=== PATIENT | female | born 1995 | race Caucasian/White ===

== ENCOUNTER 2016-12-25 10:46 | Emergency (ER) | payer OTHER ==
[2016-12-25 11:05] VITALS: RESP 20
--- NOTE | 2016-12-25 12:22 | ED ---
Female Urogenital HPI - General Chief complaint: Urogenital Stated complaint: POSS UTI Time Seen by Provider: 12/25/16 12:05 Source: patient, RN notes reviewed, old records reviewed Mode of arrival: ambulatory Limitations: no limitations - History of Present Illness Initial comments: This is a 21-year-old female presents emergency Department chief complaint of concern for sexually transmitted or urinary tract infection. Patient states that she's had burning with urination for the past week and half. Patient reports she is about to start her menstrual cycle. Patient states that she has noticed some discharge. Patient reports that she's had some minor abdominal pain but is thinking that is more related to her cramping and she's also started her menstrual cycle next week. Patient states that she wants to have a full workup for sexually transmitted infection. Patient denies any fever or chills. Last Menstrual Period: 12/25/16 - Related Data Home Medications Medication Instructions Recorded Confirmed Norethindrone-E.estradiol-Iron 1 tab PO DAILY@1500 12/25/16 12/25/16 [Loestrin Fe 1.5-30 Tablet] Previous Rx's Medication Instructions Recorded Fluconazole [Diflucan] 150 mg PO ONCE #3 tab 12/25/16 Nitrofurantoin Monohyd/M-Cryst 100 mg PO Q12HR #14 cap 12/25/16 [Macrobid] Allergies Allergy/AdvReac Type Severity Reaction Status Date / Time No Known Allergies Allergy Verified 12/25/16 12:33 Review of Systems ROS Statement: Those systems with pertinent positive or pertinent negative responses have been documented in the HPI. ROS Other: All systems not noted in ROS Statement are negative. Past Medical History Past Medical History: No Reported History History of Any Multi-Drug Resistant Organisms: None Reported Past Surgical History: No Surgical Hx Reported Past Psychological History: Anxiety, Depression Smoking Status: Never smoker Past Alcohol Use History: None Reported Past Drug Use History: None Reported General Exam - General Exam Comments Initial Comments: This is a pleasant 21-year-old female. Patient is on appear to be in any acute distress. Limitations: no limitations General appearance: alert, in no apparent distress Head exam: Present: atraumatic, normocephalic, normal inspection Eye exam: Present: normal appearance, PERRL, EOMI. Absent: scleral icterus, conjunctival injection, periorbital swelling ENT exam: Present: normal exam, mucous membranes moist Neck exam: Present: normal inspection. Absent: tenderness, meningismus, lymphadenopathy Respiratory exam: Present: normal lung sounds bilaterally. Absent: respiratory distress, wheezes, rales, rhonchi, stridor Cardiovascular Exam: Present: regular rate, normal rhythm, normal heart sounds. Absent: systolic murmur, diastolic murmur, rubs, gallop, clicks GI/Abdominal exam: Present: soft, normal bowel sounds. Absent: distended, tenderness, guarding, rebound, rigid External exam: Present: normal external exam Speculum exam: Present: normal speculum exam. Absent: erythema, cervical discharge, vaginal bleeding, foreign body By manual exam: Present: normal by manual exam. Absent: cervical motion tenderness, adnexal tenderness Extremities exam: Present: normal inspection, full ROM, normal capillary refill. Absent: tenderness, pedal edema, joint swelling, calf tenderness Back exam: Present: normal inspection Neurological exam: Present: alert, oriented X3, CN II-XII intact Psychiatric exam: Present: normal affect, normal mood Skin exam: Present: warm, dry, intact, normal color. Absent: rash Course Vital Signs 12/25/16 11:02 Temperature 99.1 F Pulse Rate 79 Respiratory 20 Rate Blood Pressure 126/57 O2 Sat by Pulse 98 Oximetry Medical Decision Making - Medical Decision Making This is a 21-year-old female presents emergency Department chief complaint of concern for sexually transmitted or urinary tract infection. Patient states that she's had burning with urination for the past week and half. Patient reports she is about to start her menstrual cycle. Patient states that she has noticed some discharge. Patient reports that she's had some minor abdominal pain but is thinking that is more related to her cramping and she's also started her menstrual cycle next week. Patient states that she wants to have a full workup for sexually transmitted infection. Patient's lab work was reviewed , very minimal signs for urinary tract infection. Patient will be cultured. Given patient's physical symptoms of dysuria, and lack of vaginal discharge. We 'll treat for urinary tract infection with Macrobid. I will prescribe the patient for Diflucan as well. Patient understands treatment plan will comply. Return parameters were discussed. Discussed close follow-up with superintendent greens. - Lab Data Lab Results 12/25/16 Range/Units 12:10 Urine Color Yellow Urine Appearance Clear (Clear) Urine pH 6.5 (5.0-8.0) Ur Specific [place] 1.018 (1.001-1.035) Urine Protein Trace H (Negative) Urine Glucose (UA) Negative (Negative) Urine Ketones 1+ H (Negative) Urine Blood Negative (Negative) Urine Nitrite Negative (Negative) Urine Bilirubin Negative (Negative) Urine Urobilinogen 8.0 (<2.0) mg/dL Ur Leukocyte Esterase Trace H (Negative) Urine RBC 3 (0-5) /hpf Urine WBC 8 H (0-5) /hpf Ur Squamous Epith Cells <1 (0-4) /hpf Urine Mucus Rare H (None) /hpf Disposition Clinical Impression: Dysuria Disposition: HOME SELF-CARE Condition: Good Instructions: Urinary Tract Infection in Women (ED) Additional Instructions: Follow-up with her primary care provider. Return to the emergency department if any alarming signs or symptoms occur. Patient advised to complete red prescription. Follow-up with her superintendent greens. Prescriptions: Fluconazole [Diflucan] 150 mg PO ONCE #3 tab Nitrofurantoin Monohyd/M-Cryst [Macrobid] 100 mg PO Q12HR #14 cap Referrals: Haley Rolle MD [Primary Care Provider] - 1-2 days Time of Disposition: 13:31
[2016-12-25 12:29] LABS: Appearance,Urine Clear (Clear); Bilirubin,Urine Negative (Negative); Glucose,Urine (UA) Negative (Negative); Ketones,Urine 1+ (Negative); Leukocyte Esterase,Urine Trace (Negative); Mucus,Urine Rare /hpf; Nitrite,Urine Negative (Negative); PH, Urine 6.5 (5.0-8.0); Particle Count 2320; Protein,Urine Trace (Negative); RBC,Urine 3 /hpf (0-5); Specific Gravity,Urine 1.018 (1.001-1.035); Squamous Epithelial Cell,Urine <1 /hpf (0-4); UA Billing (MACRO vs. MICRO) MICRO; WBC,Urine 8 /hpf (0-5)
[2016-12-25 14:09] VITALS: BP 106/59; PULSE 77; TEMP 98
== END 2016-12-25 14:09 | disposition home or self-care (01) ==
LOC: EC 10:46
DX: R30.0 Dysuria (principal); N89.8 Other specified noninflammatory disorders of vagina; R10.9 Unspecified abdominal pain; Z79.3 Long term (current) use of hormonal contraceptives
CPT/HCPCS: 81001; 81025; 87070; 87086; 87205; 87491; 87591; 87808; 99283

== ENCOUNTER 2019-05-20 11:14 | Emergency (ER) | payer OTHER ==
[2019-05-20 11:32] VITALS: RESP 18
[2019-05-20] MEDS ORDERED: AZITHROMYCIN 250 MG TAB PO STA (11:47)
[2019-05-20] MEDS ORDERED: cefTRIAXone 250 MG VIAL IM STA (11:47)
--- NOTE | 2019-05-20 12:18 | ED ---
Female Urogenital HPI - General Chief complaint: Urogenital Stated complaint: Female Time Seen by Provider: 05/20/19 11:30 Source: patient Mode of arrival: ambulatory - History of Present Illness Initial comments: The patient is a 24-year-old female who presents to the emergency department with reported vaginal burning for the past 4 days. She admits to clumpy white vaginal discharge with a history of similar in the past. She believes that she had a yeast infection. She has been using Monistat which she bought [id number] for her symptoms however it hasn't been helping. She denies any vaginal bleeding. Does admit to unprotected intercourse. There is a concern for possible sexually transmitted infection. Last menstrual cycle was the middle of last month. Denies dysuria, hematuria or difficult he voiding. Denies diarrhea, constipation, melanotic stools or hematochezia. Does admit to left sided and suprapubic abdominal pain. Reports a history of ovarian cysts. Denies any fevers or chills. No nausea or vomiting. No chest pain or shortness of breath. Denies any back pain or flank pain. There are no other alleviating, precipitating or modifying factors - Related Data Home Medications Medication Instructions Recorded Confirmed Norethindrone-E.estradiol-Iron 1 tab PO DAILY@1500 12/25/16 12/25/16 [Loestrin Fe 1.5-30 Tablet] Previous Rx's Medication Instructions Recorded Fluconazole [Diflucan] 150 mg PO ONCE #3 tab 12/25/16 Nitrofurantoin Monohyd/M-Cryst 100 mg PO Q12HR #14 cap 12/25/16 [Macrobid] Fluconazole [Diflucan] 150 mg PO ONCE #1 tab 05/20/19 Allergies Allergy/AdvReac Type Severity Reaction Status Date / Time No Known Allergies Allergy Verified 12/25/16 12:33 Review of Systems ROS Statement: Those systems with pertinent positive or pertinent negative responses have been documented in the HPI. ROS Other: All systems not noted in ROS Statement are negative. Past Medical History Past Medical History: No Reported History Additional Past Medical History / Comment(s): ovarian cysts History of Any Multi-Drug Resistant Organisms: None Reported Past Surgical History: No Surgical Hx Reported Past Psychological History: Anxiety, Depression Smoking Status: Never smoker Past Alcohol Use History: None Reported Past Drug Use History: None Reported General Exam General appearance: alert, in no apparent distress Head exam: Present: atraumatic, normocephalic, normal inspection Eye exam: Present: normal appearance, PERRL, EOMI. Absent: scleral icterus, conjunctival injection, periorbital swelling ENT exam: Present: normal exam, mucous membranes moist Neck exam: Present: normal inspection. Absent: tenderness, meningismus, lymphadenopathy Respiratory exam: Present: normal lung sounds bilaterally. Absent: respiratory distress, wheezes, rales, rhonchi, stridor Cardiovascular Exam: Present: regular rate, normal rhythm, normal heart sounds. Absent: systolic murmur, diastolic murmur, rubs, gallop, clicks GI/Abdominal exam: Present: soft, normal bowel sounds. Absent: distended, tenderness, guarding, rebound, rigid External exam: Present: erythema (of the labia majora), swelling (of the labia majora). Absent: lesions, lacerations, ecchymosis Speculum exam: Present: erythema, vaginal discharge (white, clumpy), cervical discharge. Absent: vaginal bleeding, foreign body, tissue, laceration By manual exam: Absent: cervical motion tenderness, adnexal tenderness, adnexal mass, uterine enlargement, uterine tenderness Extremities exam: Present: normal inspection, full ROM, normal capillary refill. Absent: tenderness, pedal edema, joint swelling, calf tenderness Back exam: Present: normal inspection Neurological exam: Present: alert, oriented X3, CN II-XII intact Psychiatric exam: Present: normal affect, normal mood Skin exam: Present: warm, dry, intact, normal color. Absent: rash Course Vital Signs 05/20/19 05/20/19 11:27 13:44 Temperature 98.2 F 97.9 F Pulse Rate 83 72 Respiratory 18 18 Rate Blood Pressure 103/80 111/70 O2 Sat by Pulse 100 98 Oximetry Medical Decision Making - Medical Decision Making Upon arrival the patient was placed in room 16. A thorough history and physical exam was performed. The patient provided a urine sample. It is negative for any acute findings. Urine hCG is negative. Recommend a pelvic exam. It does demonstrate thick, clumpy white discharge consistent with yeast. I did offer treatment for STDs. Patient does agree and was given 250 mg of Rocephin and 1 g of azithromycin. Trichomonas is negative. He is given 150 mg of Diflucan in the ER. I also provided the patient with an additional prescription for 1 tablet. She is instructed on its use. Transvaginal ultrasound is performed because her suprapubic and left quadrant pain. It does demonstrate a complex 3.8 m structure within the right ovary. Patient has no pain on the right side. I did discuss the diagnosis, differential and treatment options. I did give her follow-up information for Dr. Lemus's office. I informed her that she needs to a follow-up appointment regarding her complex ovarian cysts as well as to ensure her yeast infection has cleared. The patient understood this. If she has any new or worsening symptoms she should return to the emergency room. Patient was discharged home in stable condition - Lab Data Lab Results 05/20/19 05/20/19 05/20/19 Range/Units 11:50 11:50 11:55 Urine Color Light Yellow Urine Appearance Clear (Clear) Urine pH 7.5 (5.0-8.0) Ur Specific [place] 1.013 (1.001-1.035) Urine Protein Negative (Negative) Urine Glucose (UA) Negative (Negative) Urine Ketones Negative (Negative) Urine Blood Negative (Negative) Urine Nitrite Negative (Negative) Urine Bilirubin Negative (Negative) Urine Urobilinogen <2.0 (<2.0) mg/dL Ur Leukocyte Esterase Negative (Negative) Urine HCG, Qual Not Detected (Not Detectd) Chlamydia Source Vagina Chlamydia DNA (PCR) Negative (Neg,Equiv) N. gonorrhoeae Source Vagina N.gonorrhoeae DNA Probe Negative (Neg,Equiv) Trichomonas Ag (Rapid) (Negative) 05/20/19 Range/Units 11:55 Urine Color Urine Appearance (Clear) Urine pH (5.0-8.0) Ur Specific [place] (1.001-1.035) Urine Protein (Negative) Urine Glucose (UA) (Negative) Urine Ketones (Negative) Urine Blood (Negative) Urine Nitrite (Negative) Urine Bilirubin (Negative) Urine Urobilinogen (<2.0) mg/dL Ur Leukocyte Esterase (Negative) Urine HCG, Qual (Not Detectd) Chlamydia Source Chlamydia DNA (PCR) (Neg,Equiv) N. gonorrhoeae Source N.gonorrhoeae DNA Probe (Neg,Equiv) Trichomonas Ag (Rapid) Negative (Negative) Disposition Clinical Impression: Pelvic pain, Vaginal candidiasis, Ovarian cyst Disposition: HOME SELF-CARE Condition: Stable Instructions (If sedation given, give patient instructions): Yeast Infection (ED) Additional Instructions: Follow-up with [facility] regarding your ovarian cysts and yeast infection. Return to the emergency room for any new or worsening symptoms Prescriptions: Fluconazole [Diflucan] 150 mg PO ONCE #1 tab Is patient prescribed a controlled substance at d/c from ED?: No Referrals: None,Stated [Primary Care Provider] - 1-2 days Magnus Lemus MD [STAFF PHYSICIAN] - 1-2 days Time of Disposition: 13:37
[2019-05-20 12:29] LABS: Appearance,Urine Clear (Clear); Bilirubin,Urine Negative (Negative); Blood,Urine Negative (Negative); Color,Urine Light Yellow; Glucose,Urine (UA) Negative (Negative); Ketones,Urine Negative (Negative); Leukocyte Esterase,Urine Negative (Negative); Nitrite,Urine Negative (Negative); PH, Urine 7.5 (5.0-8.0); Protein,Urine Negative (Negative); Specific Gravity,Urine 1.013 (1.001-1.035); Urobilinogen,Urine <2.0 mg/dL (<2.0)
--- NOTE | 2019-05-20 12:54 | US ---
EXAMINATION TYPE: US transvaginal DATE OF EXAM: 05/20/2019 COMPARISON: 05/10/2016 CLINICAL HISTORY: pain. Pain with pressure. TECHNIQUE: Transvaginal (TV). Date of LMP: 04/20/2019 EXAM MEASUREMENTS: Uterus: 7.3 x 4.9 x 5.7 cm Endometrial Stripe: .8 cm Right Ovary: 5.3 x 3.1 x 5.1 cm Left Ovary: 2.2 x 1.4 x 2.4 cm 1. Uterus: Retroverted wnl 2. Endometrium: wnl 3. Right Ovary: Complex area seen 3.1 x 2.5 x 3.8 cm. 4. Left Ovary: wnl Spectral, color and waveform doppler imaging shows good arterial and venous flow within the ovaries ; there is no evidence for ovarian torsion. 5. Bilateral Adnexa: Anechoic tubular structure seen right adnexa. 6. Posterior cul-de-sac: wnl IMPRESSION: 1. There is a complex 3.8 cm structure within the right ovary could represent a complicated cyst or h emorrhagic cyst. Endometrioma, PID in the differential diagnosis. Correlate with beta hCG to exclude ectopic . 2. Prominent anechoic structure in the right lower quadrant which could be on the basis of hydrosalpi nx correlate clinically.
[2019-05-20] MEDS ORDERED: FLUCONAZOLE 150 MG TAB PO STA (13:27)
[2019-05-20 13:46] VITALS: BP 111/70; PULSE 72; TEMP 97.9
[2019-05-21 13:27] LABS: C. trachomatis,PCR Negative (Neg,Equiv); Chlamydia trachomatis Source Vagina; N. gonorrhoeae,PCR Negative (Neg,Equiv); Neisseria Source Vagina
== END 2019-05-20 13:43 | disposition home or self-care (01) ==
LOC: EC 11:14
DX: B37.3 Candidiasis of vulva and vagina (principal); N83.201 Unspecified ovarian cyst, right side; Z79.3 Long term (current) use of hormonal contraceptives
CPT/HCPCS: 99284; 96372; 81003; 81025; 87808; 87491; 87591; 87070; 93975; 76830; J0696

== ENCOUNTER 2020-11-10 17:19 | Emergency (ER) | payer OTHER ==
[2020-11-10 17:25] VITALS: BP 120/81; PULSE 78; RESP 16; TEMP 97.8
[2020-11-10] MEDS ORDERED: RABIES IMMUNE GLOB 300 UNIT/ML 1 ML VIAL IM ONE (17:44)
[2020-11-10] MEDS ORDERED: RABIES VACCINE (PCEC) 2.5 UNIT KIT IM ONE (17:44)
--- NOTE | 2020-11-10 18:51 | ED ---
Animal Bite HPI - General Chief Complaint: Animal Bite Stated Complaint: Bit by squirrel Time Seen by Provider: 11/10/20 17:35 Source: patient Mode of arrival: ambulatory Limitations: no limitations - History of Present Illness Initial Comments: Patient is a 25-year-old female presenting to emergency Department with complaints of a squirrel bite to her left index finger about half hour prior to arrival. Patient states that she was trying to get the squirrel from her dog's mouth when she was able to with the squirrel bit her and ran off. Patient st ates it was bleeding, she'll wash soap and water, peroxide and alcohol immediately after. She states she came in because she was concerned for rabies. Her tetanus vaccine is up-to-date. She denies being at this time. She denies any further complaints. - Related Data Home Medications Medication Instructions Recorded Confirmed Desvenlafaxine Succinate [Pristiq] 50 mg PO DAILY 11/10/20 11/10/20 Previous Rx's Medication Instructions Recorded Amoxicillin/Potassium Clav 1 tab PO BID 3 Days #6 tab 11/10/20 [Augmentin 875-125 Tablet] Allergies Allergy/AdvReac Type Severity Reaction Status Date / Time No Known Allergies Allergy Verified 11/10/20 17:25 Review of Systems ROS Statement: Those systems with pertinent positive or pertinent negative responses have been documented in the HPI. ROS Other: All systems not noted in ROS Statement are negative. Past Medical History Past Medical History: No Reported History Additional Past Medical History / Comment(s): ovarian cysts History of Any Multi-Drug Resistant Organisms: None Reported Past Surgical History: No Surgical Hx Reported Past Psychological History: Anxiety, Depression Smoking Status: Never smoker Past Alcohol Use History: None Reported Past Drug Use History: Marijuana General Exam - General Exam Comments Initial Comments: GENERAL: Patient is well-developed and well-nourished. Patient is nontoxic and in no acute distress. HEAD: Atraumatic, normocephalic. EYES: Pupils equal round and reactive to light, extraocular movements intact, sclera anicteric, conjunctiva are normal. Eyelids were unremarkable. ENT: Nares patent, oropharynx clear without exudates. Moist mucous membranes. NECK: Normal range of motion, supple without lymphadenopathy or JVD. LUNGS: Unlabored respirations. Breath sounds clear to auscultation bilaterally and equal. No wheezes rales or rhonchi. HEART: Regular rate and rhythm without murmurs, rubs or gallops. ABDOMEN: Soft, nontender, normoactive bowel sounds. : Deferred MUSCULOSKELETAL: Normal extremities with adequate strength and normal range of motion, no pitting or edema. No clubbing or cyanosis. NEUROLOGICAL: Patient is alert and oriented x 3. Motor and sensory are also intact. Cranial nerves II through XII grossly intact. Symmetrical smile. Normal speech, normal gait. PSYCH: Normal mood, normal affect. SKIN: Warm, Dry, normal turgor, no rashes. Patient has a superficial, small, bite angely noted to the left index finger, IP joint, dorsal aspect. Limitations: no limitations Course Vital Signs 11/10/20 17:21 Temperature 97.8 F Pulse Rate 78 Respiratory 16 Rate Blood Pressure 120/81 O2 Sat by Pulse 99 Oximetry Medical Decision Making - Medical Decision Making Patient is a 25-year-old female here with a superficial squirrel bite to her left index finger happened about a half hour prior to arrival. He shouldn't wanted the rabies vaccine. Her tetanus vaccine is up-to-date. I discussed the risks versus benefits of the rabies vaccine, squirrels are generally low for rabies. Patient still wishes to proceed with rabies vaccine. We did administer this today. Patient will be placed on a few days of antibiotic to prevent infection. Prescription for future rabies vaccine were given to the patient. She is stable for discharge. Case discussed with Dr. Solorzano. Disposition Clinical Impression: Bitten by squirrel, Animal bite of index finger Disposition: HOME SELF-CARE Condition: Stable Instructions (If sedation given, give patient instructions): Animal Bite (ED) Additional Instructions: Please return to the Emergency Department if symptoms worsen or any other concerns. Continue with vaccine as prescribed on day 3, day 7, day 14. Take antibiotic as prescribed. Prescriptions: Amoxicillin/Potassium Clav [Augmentin 875-125 Tablet] 1 tab PO BID 3 Days #6 tab Is patient prescribed a controlled substance at d/c from ED?: No Referrals: Jamilah Strauss MD [Primary Care Provider] - 1-2 days Time of Disposition: 18:51
== END 2020-11-10 19:20 | disposition home or self-care (01) ==
LOC: EC 17:19
DX: S61.251A Open bite of left index finger without damage to nail, initial encounter (principal); F32.9 Major depressive disorder, single episode, unspecified; F12.90 Cannabis use, unspecified, uncomplicated; W53.21XA Bitten by squirrel, initial encounter
CPT/HCPCS: 90375; 90675; 96372; 99283

== ENCOUNTER 2021-10-17 09:37 | Emergency (ER) | payer OTHER ==
[2021-10-17 09:47] VITALS: TEMP 98.3
[2021-10-17] MEDS ORDERED: SODIUM CHLORIDE 0.9% 2,000 ML IV STA (10:12)
[2021-10-17] MEDS ORDERED: ONDANSETRON 4 MG/2 ML VIAL IVP STA (10:12)
[2021-10-17 10:58] LABS: Basophils % (A) 0 %; Eosinophils # (A) 0.1 k/uL (0-0.7); Eosinophils % (A) 2 %; HCT 43.4 % (34.0-46.0); HGB 14.4 gm/dL (11.4-16.0); Lymphocytes # (A) 0.3 k/uL (1.0-4.8); Lymphocytes % (A) 4 %; MCH 30.5 pg (25.0-35.0); MCHC 33.3 g/dL (31.0-37.0); MCV 91.8 fL (80.0-100.0); Mean Platelet Volume 10.3; Monocytes # (A) 0.6 k/uL (0-1.0); Monocytes % (A) 8 %; Neutrophils # (A) 6.1 k/uL (1.3-7.7); Neutrophils % (A) 85 %; Platelet Count 141 k/uL (150-450); RBC 4.73 m/uL (3.80-5.40); RDW 11.9 % (11.5-15.5); WBC 7.2 k/uL (3.8-10.6)
[2021-10-17 11:12] LABS: ALT 14 U/L (4-34); AST 22 U/L (14-36); African American GFR (CKD) >90 (>60 ml/min/1.73 sqM); Alkaline Phosphatase 55 U/L (38-126); Anion Gap 9 mmol/L; Appearance,Urine Cloudy (Clear); Bacteria,Urine Few /hpf; Bilirubin,Urine Negative (Negative); Blood Urea Nitrogen 16 mg/dL (7-17); Blood,Urine Negative (Negative); Budding Yeast,Urine Rare /hpf; Calcium 8.5 mg/dL (8.4-10.2); Carbon Dioxide 26 mmol/L (22-30); Chloride 102 mmol/L (98-107); Color,Urine Yellow; Glucose 103 mg/dL (74-99); Glucose,Urine (UA) Negative (Negative); Ketones,Urine 1+ (Negative); Leukocyte Esterase,Urine Small (Negative); Lipase 57 U/L (23-300); Mucus,Urine Many /hpf; Nitrite,Urine Negative (Negative); Non-African American GFR(CKD) >90 (>60 ml/min/1.73 sqM); Potassium 4.2 mmol/L (3.5-5.1); Protein,Urine 1+ (Negative); RBC,Urine 2 /hpf (0-5); Sodium 137 mmol/L (137-145); Specific Gravity,Urine 1.033 (1.001-1.035); Squamous Epithelial Cell,Urine 11 /hpf (0-4); Total Bilirubin 0.7 mg/dL (0.2-1.3); Total Protein 6.8 g/dL (6.3-8.2); WBC,Urine 4 /hpf (0-5)
[2021-10-17 11:22] VITALS: RESP 18
[2021-10-17] MEDS ORDERED: METOCLOPRAMIDE 5 MG/ML 2 ML VIAL IVP STA (11:49)
[2021-10-17] MEDS ORDERED: MAG HYDROX/AL HYDROX/SIMETH 30 ML CUP PO STA (11:49)
--- NOTE | 2021-10-17 11:52 | ED ---
General Adult HPI - General Chief complaint: Nausea/Vomiting/Diarrhea Stated complaint: nausea, vomiting Time Seen by Provider: 10/17/21 09:52 Source: patient, RN notes reviewed Mode of arrival: wheelchair Limitations: no limitations - History of Present Illness Initial comments: 26-year-old female presents emergency department tingling nausea vomiting d iarrhea. Symptoms started 3 days ago. States initially started just diarrhea states that she slammed area but started having vomiting throughout the night. Patient states cannot keep anything down. Patient is went of heartburn. Patient denies any chest pain or shortness of breath no fevers chills no sick contacts. She does admit to body aches. - Related Data Home Medications Medication Instructions Recorded Confirmed Desvenlafaxine Succinate [Pristiq] 50 mg PO DAILY 11/10/20 11/10/20 Previous Rx's Medication Instructions Recorded Amoxicillin/Potassium Clav 1 tab PO BID 3 Days #6 tab 11/10/20 [Augmentin 875-125 Tablet] Famotidine [Pepcid] 20 mg PO BID #28 tablet 10/17/21 Ondansetron Odt [Zofran Odt] 4 mg PO Q8HR PRN #10 tab 10/17/21 Allergies Allergy/AdvReac Type Severity Reaction Status Date / Time No Known Allergies Allergy Verified 10/17/21 09:45 Review of Systems ROS Statement: Those systems with pertinent positive or pertinent negative responses have been documented in the HPI. ROS Other: All systems not noted in ROS Statement are negative. Past Medical History Past Medical History: No Reported History Additional Past Medical History / Comment(s): ovarian cysts History of Any Multi-Drug Resistant Organisms: None Reported Past Surgical History: No Surgical Hx Reported Past Psychological History: Anxiety, Depression Smoking Status: Never smoker Past Alcohol Use History: None Reported Past Drug Use History: Marijuana General Exam Limitations: no limitations General appearance: alert, in no apparent distress Head exam: Present: atraumatic, normocephalic, normal inspection Eye exam: Present: normal appearance, PERRL, EOMI. Absent: scleral icterus, co njunctival injection, periorbital swelling ENT exam: Present: normal exam, normal oropharynx, mucous membranes moist Neck exam: Present: normal inspection, full ROM. Absent: tenderness, meningismus, lymphadenopathy Respiratory exam: Present: normal lung sounds bilaterally. Absent: respiratory distress, wheezes, rales, rhonchi, stridor Cardiovascular Exam: Present: regular rate, normal rhythm, normal heart sounds. Absent: systolic murmur, diastolic murmur, rubs, gallop, clicks GI/Abdominal exam: Present: soft, normal bowel sounds. Absent: distended, tenderness, guarding, rebound, rigid Course Vital Signs 10/17/21 10/17/21 09:45 11:21 Temperature 98.3 F Pulse Rate 98 67 Respiratory 16 18 Rate Blood Pressure 113/73 102/68 O2 Sat by Pulse 99 97 Oximetry Medical Decision Making - Medical Decision Making Patient had full set of labs the no specific findings. Patient was hydrated, given antiemetics she does feel improved she has meant of heartburn. Patient discharged with Evelyn Shafer return parameters discussed. - Lab Data Result diagrams: 10/17/21 10:17 10/17/21 10:17 Lab Results 10/17/21 10/17/21 10/17/21 Range/Units 10:17 10:17 10:17 WBC 7.2 (3.8-10.6) k/uL RBC 4.73 (3.80-5.40) m/uL Hgb 14.4 (11.4-16.0) gm/dL Hct 43.4 (34.0-46.0) % MCV 91.8 (80.0-100.0) fL MCH 30.5 (25.0-35.0) pg MCHC 33.3 (31.0-37.0) g/dL RDW 11.9 (11.5-15.5) % Plt Count 141 L (150-450) k/uL MPV 10.3 Neutrophils % 85 % Lymphocytes % 4 % Monocytes % 8 % Eosinophils % 2 % Basophils % 0 % Neutrophils # 6.1 (1.3-7.7) k/uL Lymphocytes # 0.3 L (1.0-4.8) k/uL Monocytes # 0.6 (0-1.0) k/uL Eosinophils # 0.1 (0-0.7) k/uL Basophils # 0.0 (0-0.2) k/uL Sodium 137 (137-145) mmol/L Potassium 4.2 (3.5-5.1) mmol/L Chloride 102 (98-107) mmol/L Carbon Dioxide 26 (22-30) mmol/L Anion Gap 9 mmol/L BUN 16 (7-17) mg/dL Creatinine 0.80 (0.52-1.04) mg/dL Est GFR (CKD-EPI)AfAm >90 (>60 ml/min/1.73 sqM) Est GFR (CKD-EPI)NonAf >90 (>60 ml/min/1.73 sqM) Glucose 103 H (74-99) mg/dL Calcium 8.5 (8.4-10.2) mg/dL Total Bilirubin 0.7 (0.2-1.3) mg/dL AST 22 (14-36) U/L ALT 14 (4-34) U/L Alkaline Phosphatase 55 (38-126) U/L Total Protein 6.8 (6.3-8.2) g/dL Albumin 4.0 (3.5-5.0) g/dL Lipase 57 (23-300) U/L Urine Color Yellow Urine Appearance Cloudy H (Clear) Urine pH 6.0 (5.0-8.0) Ur Specific [place] 1.033 (1.001-1.035) Urine Protein 1+ H (Negative) Urine Glucose (UA) Negative (Negative) Urine Ketones 1+ H (Negative) Urine Blood Negative (Negative) Urine Nitrite Negative (Negative) Urine Bilirubin Negative (Negative) Urine Urobilinogen 2.0 (<2.0) mg/dL Ur Leukocyte Esterase Small H (Negative) Urine RBC 2 (0-5) /hpf Urine WBC 4 (0-5) /hpf Ur Squamous Epith Cells 11 H (0-4) /hpf Urine Bacteria Few H (None) /hpf Urine Mucus Many H (None) /hpf Urine Yeast (Budding) Rare H (None) /hpf Urine HCG, Qual (Not Detectd) 10/17/21 Range/Units 10:17 WBC (3.8-10.6) k/uL RBC (3.80-5.40) m/uL Hgb (11.4-16.0) gm/dL Hct (34.0-46.0) % MCV (80.0-100.0) fL MCH (25.0-35.0) pg MCHC (31.0-37.0) g/dL RDW (11.5-15.5) % Plt Count (150-450) k/uL MPV Neutrophils % % Lymphocytes % % Monocytes % % Eosinophils % % Basophils % % Neutrophils # (1.3-7.7) k/uL Lymphocytes # (1.0-4.8) k/uL Monocytes # (0-1.0) k/uL Eosinophils # (0-0.7) k/uL Basophils # (0-0.2) k/uL Sodium (137-145) mmol/L Potassium (3.5-5.1) mmol/L Chloride (98-107) mmol/L Carbon Dioxide (22-30) mmol/L Anion Gap mmol/L BUN (7-17) mg/dL Creatinine (0.52-1.04) mg/dL Est GFR (CKD-EPI)AfAm (>60 ml/min/1.73 sqM) Est GFR (CKD-EPI)NonAf (>60 ml/min/1.73 sqM) Glucose (74-99) mg/dL Calcium (8.4-10.2) mg/dL Total Bilirubin (0.2-1.3) mg/dL AST (14-36) U/L ALT (4-34) U/L Alkaline Phosphatase (38-126) U/L Total Protein (6.3-8.2) g/dL Albumin (3.5-5.0) g/dL Lipase (23-300) U/L Urine Color Urine Appearance (Clear) Urine pH (5.0-8.0) Ur Specific [place] (1.001-1.035) Urine Protein (Negative) Urine Glucose (UA) (Negative) Urine Ketones (Negative) Urine Blood (Negative) Urine Nitrite (Negative) Urine Bilirubin (Negative) Urine Urobilinogen (<2.0) mg/dL Ur Leukocyte Esterase (Negative) Urine RBC (0-5) /hpf Urine WBC (0-5) /hpf Ur Squamous Epith Cells (0-4) /hpf Urine Bacteria (None) /hpf Urine Mucus (None) /hpf Urine Yeast (Budding) (None) /hpf Urine HCG, Qual Not Detected (Not Detectd) Disposition Clinical Impression: Gastroenteritis Disposition: HOME SELF-CARE Condition: Stable Instructions (If sedation given, give patient instructions): Gastroenteritis (ED) Additional Instructions: Please return to the Emergency Department if symptoms worsen or any other concerns. Prescriptions: Famotidine [Pepcid] 20 mg PO BID #28 tablet Ondansetron Odt [Zofran Odt] 4 mg PO Q8HR PRN #10 tab PRN Reason: Nausea Is patient prescribed a controlled substance at d/c from ED?: No Referrals: Jamilah Strauss MD [Primary Care Provider] - 1-2 days Time of Disposition: 11:52
[2021-10-17 12:16] VITALS: BP 104/72; PULSE 68
== END 2021-10-17 12:12 | disposition home or self-care (01) ==
LOC: EC 09:37
DX: K52.9 Noninfective gastroenteritis and colitis, unspecified (principal); F12.90 Cannabis use, unspecified, uncomplicated
CPT/HCPCS: 36415; 80053; 83690; 85025; 81001; 81025; 99284; 96374; 96361; J2405

== ENCOUNTER → 2022-06-12 | Outpatient (CLI) | payer OTHER ==
--- NOTE | 2022-06-12 08:04 | USB ---
Reason for Exam: Clinical finding. Technique: Method: Targeted. Findings: The whole breast of the left breast, the upper outer quadrant of the right breast, the axilla of both breasts and the retroareolar of both breasts were scanned. Ultrasound of the right breast demonstrates a well-circumscribed mass at the 8:00 position 4 cm from the nipple measuring 1.1 x 1.2 cm. Spur is most compatible with a fibroadenoma however follow-up is advised. Evaluation of the left breast reveals no solid or cystic mass. Overall Assessment: Incomplete: need additional imaging evaluation, BI-RAD 0 Management: Diagnostic Mammogram of both breasts. A clinical breast exam by your physician is recommended on an annual basis and results should be correlated with mammographic findings. This exam should not preclude additional follow-up of suspicious palpable abnormalities. Results were given to the patient verbally at the time of exam. Electronically signed and approved by: Braden Jacques M.D. Radiologis
--- NOTE | 2022-06-12 08:30 | MM ---
Reason for Exam: Clinical finding. Indicated Problems: Palpable abnormality. Patient History: Menarche at age 13. Premenopausal. Maternal aunt had breast cancer, age 59. Paternal grandmother had breast cancer. Mother had breast cancer, age 41. Last menstrual period: 06/11/2022 Tissue Density: The breast tissue is extremely dense which could obscure a lesion on mammography. Findings: Analyzed By CAD. Mass at the right 8:00 position is demonstrated. This is felt to reflect fibroadenoma on ultrasound and six-month follow-up ultrasound is advised. No additional masses seen. No evidence for distortion or suspicious cluster Of microcalcifications. Overall Assessment: Probably benign, BI-RAD 3 Management: Diagnostic Breast Ultrasound of the right breast in 6 months. A clinical breast exam by your physician is recommended on an annual basis and results should be correlated with mammographic findings. This exam should not preclude additional follow-up of suspicious palpable abnormalities. Results were given to the patient verbally at the time of exam. Electronically signed and approved by: Braden Jacques M.D. Radiologis
== END | disposition home or self-care (01) ==
LOC: RADUSWWP 07:04
PROVIDERS: ATTEND Family Medicine
DX: N63.21 Unspecified lump in the left breast, upper outer quadrant (principal); N63.13 Unspecified lump in the right breast, lower outer quadrant; Z80.3 Family history of malignant neoplasm of breast
CPT/HCPCS: 77066; 76642; G0279; 77062

== ENCOUNTER → 2022-08-04 | Outpatient (CLI) | payer OTHER ==
[2022-08-04 08:43] VITALS: BP 106/55; PULSE 87; RESP 17; TEMP 98.6
--- NOTE | 2022-08-04 09:00 | P.GSHP ---
History of Present Illness H&P Date: 08/04/22 Chief Complaint: Abnormal left breast ultrasound Yaquelin is a 27-year-old white female seen in consultation for Dr. Strauss Regarding a palpable and radiographic abnormality in the right breast. She underwent a bilateral diagnostic mammogram on which was fo llowed by an ultrasound of both breast. On ultrasound a 1.1 x 1.2 cm lesion was identified in the right breast this was well circumscribed at the 8 o'clock position 4 cm from the nipple most likely representing a fibroadenoma. No lesions of concern were identified in the left breast. The patient has been able to feel the lesion in her right breast since May. It has not changed in size. It was sensitive just before her menstrual cycle. She is not complaining of any other lumps masses or nodules in either breast. She is not complaining of any nipple discharge or skin changes. She has not had any recent trauma or infection in the breast. The patient has bilateral nipple piercing which was done in October 2021. Patient had genetic testing done and is waiting for results. Caffeine: occasional nictoine: none chocolate: occasional BCP: 19-21; not using them now Family History: mother: breast cancer at 44 no genetic testing maternal aunt: breast cancer 59 paternal grandmother: breast cancer in her 40's maternal grandmother: colon cancer Hormonal History: menarche: 13 G0 periods regular; LMP: 4 weeks ago Surgical History: none Medical History: anxiety Social History: Eating: Negative Alcohol: Negative Drugs: Has experimented with hallucinogens in the past, uses them occasional - Constitutional Constitutional: Denies chills, Denies fever - EENT Eyes: denies blurred vision, denies pain Ears: deny: decreased hearing, tinnitus Ears, nose, mouth and throat: Denies headache, Denies sore throat - Breasts Breasts: bilateral: as per HPI - Cardiovascular Cardiovascular: Denies chest pain, Denies shortness of breath - Respiratory Respiratory: Denies cough, Denies 7 - Gastrointestinal Gastrointestinal: Denies abdominal pain, Denies diarrhea, Denies nausea, Denies vomiting - Genitourinary (Female) Genitourinary: Denies dysuria, Denies hematuria - Menstruation Menstruation: Reports period normal - Musculoskeletal Musculoskeletal: Denies myalgias - Integumentary Integumentary: Denies pruritus, Denies rash - Neurological Neurological: Denies numbness, Denies weakness - Psychiatric Psychiatric: Reports anxiety, Reports depression - Endocrine Endocrine: Denies fatigue, Denies weight change - Hematologic/Lymphatic Comment: none - Allergic/Immunologic Allergic/Immunologic: Reports seasonal allergies Past Medical History Past Medical History: No Reported History Additional Past Medical History / Comment(s): ovarian cysts History of Any Multi-Drug Resistant Organisms: None Reported Past Surgical History: No Surgical Hx Reported Past Psychological History: Anxiety, Depression Smoking Status: Never smoker Past Alcohol Use History: None Reported Past Drug Use History: Marijuana Medications and Allergies Home Medications Medication Instructions Recorded Confirmed Type Amoxicillin/Potassium Clav 1 tab PO BID 3 Days #6 tab 11/10/20 Rx [Augmentin 875-125 Tablet] Desvenlafaxine Succinate [Pristiq] 50 mg PO DAILY 11/10/20 11/10/20 History Famotidine [Pepcid] 20 mg PO BID #28 tablet 10/17/21 Rx Ondansetron Odt [Zofran Odt] 4 mg PO Q8HR PRN #10 tab 10/17/21 Rx Allergies Allergy/AdvReac Type Severity Reaction Status Date / Time No Known Allergies Allergy Verified 10/17/21 09:45 Surgical - Exam - General no distress - Eyes normal ocular movement - Neck trachea midline - Respiratory normal respiratory effort - Cardiovascular Rhythm: regular Heart Sounds: normal: S1, S2 - Abdomen Abdomen: soft, non tender, no guarding, no rigid, no rebound - Integumentary normal turgor - Neurologic no disoriented, no combative - Musculoskeletal normal gait, normal posture - Psychiatric oriented to time, oriented to person, oriented to place, speech is normal, memory intact Breast Exam: BRA: 34B Inspection: bilateral nipple piercing, bilateral grade 1 ptosis Palpation: Right breast: Multiple positional exam dense breast tissue, mass noted at the 8 o'clock position approximately 1-1/2 cm in size freely mobile Right axilla: Shoddy adenopathy Left breast: Multiple positional exam dense breast tissue, fibrocystic changes, no dominant masses or nodules of concern Left axilla: Shoddy adenopathy Results Mammogram and ultrasound reviewed personally Assessment and Plan Assessment: Impression: Probable mass right breast Radiographic abnormality right breast Dense breast tissue Plan: Ultrasound-guided core biopsy right breast lesion confirmed fibroadenoma Await genetic testing Follow up after genetic testing results and results of core biopsy obtained Cc: Dr. Vannesa Strauss
== END ==
LOC: WWCWWP 08:34
PROVIDERS: ATTEND Surgery
DX: Z85.3 Personal history of malignant neoplasm of breast (principal); F41.9 Anxiety disorder, unspecified

== ENCOUNTER → 2023-02-27 | Outpatient (CLI) | payer OTHER ==
--- NOTE | 2023-02-27 09:52 | USB ---
Reason for Exam: Follow-up at short interval from prior study. Patient History: Menarche at age 13. Premenopausal. 08/29/2022, Benign US biopsy breast VAD RT on the right side. Maternal aunt had breast cancer, age 59. Paternal grandmother had breast cancer. Mother had breast cancer, age 41. Technique: Method: Targeted. Prior Study Comparison: 06/12/2022 Bilateral MG 3D diag mammo w/cad [facility], [facility]. Findings: The lateral section of the breast of the right breast, the axilla of the right breast and the retroareolar of the right breast were scanned. Previously sampled solid mass right breast has enlarged and currently measures 2.4 x 1.3 cm versus 1.2 x 1.1 cm previously. Pathology results are compatible with fibroadenoma. Continued follow-up is recommended given interval increase in size. Overall Assessment: Probably benign, BI-RAD 3 Management: Diagnostic Breast Ultrasound of the right breast in 6 months. A clinical breast exam by your physician is recommended on an annual basis and results should be correlated with mammographic findings. This exam should not preclude additional follow-up of suspicious palpable abnormalities. Results were given to the patient verbally at the time of exam. Electronically signed and approved by: Braden Jacques M.D. Radiologis
== END | disposition home or self-care (01) ==
LOC: RADUSWWP 08:51
PROVIDERS: ATTEND Surgery
DX: R92.8 Other abnormal and inconclusive findings on diagnostic imaging of breast (principal); Z80.3 Family history of malignant neoplasm of breast

== ENCOUNTER → 2023-03-23 | Outpatient (CLI) | payer OTHER ==
[2023-03-23 09:06] VITALS: BP 113/74; PULSE 71; RESP 16; TEMP 98.1
--- NOTE | 2023-03-23 09:42 | P.PN ---
Subjective Progress Note Date: 03/23/23 Principal diagnosis: fibroadenoma right breast 09/08/22 Yaquelin is a 27-year-old white female seen in consultation for Dr. Mariano Regarding a palpable and radiographic abnormality in the right breast. She underwent a bilateral diagnostic mammogram on which was followed by an ultrasound of both breast. On ultrasound a 1.1 x 1.2 cm lesion was identified in the right breast this was well circumscribed at the 8 o'clock position 4 cm from the nipple most likely representing a fibroadenoma. No lesions of concern were identified in the left breast. The patient has been able to feel the lesion in her right breast since May. It has not changed in size. It was sensitive just before her menstrual cycle. She is not complaining of any other lumps masses or nodules in either breast. She is not complaining of any nipple discharge or skin changes. She has not had any recent trauma or infection in the breast. The patient has bilateral nipple piercing which was done in October 2021. 09-08-22 Pathology on the core biopsy of the palpable lesion in the right breast was a fibroadenoma. At this time the patient is not one any intervention for the lesion. She did not have her genetic testing results as she did the test but there was told that it was a failed test. Going to pursue this again. 03-23-23 ultrasound right breast 02-27-23 increase size of fibroadenoma Testing was done and was negative The patient states that the palpable mass in her right breast has increased in size. She is not complaining of any other new lumps masses or nodules of concern in either breast. Caffeine: occasional nictoine: none chocolate: occasional BCP: 19-21; not using them now Family History: mother: breast cancer at 44 no genetic testing maternal aunt: breast cancer 59 paternal grandmother: breast cancer in her 40's maternal grandmother: colon cancer Hormonal History: menarche: 13 G0 periods regular; LMP: 4 weeks ago Surgical History: none Medical History: anxiety Social History: Eating: Negative Alcohol: Negative Drugs: Has experimented with hallucinogens in the past, uses them occasional - Constitutional Constitutional: Denies chills, Denies fever - EENT Eyes: denies blurred vision, denies pain Ears: deny: decreased hearing, tinnitus Ears, nose, mouth and throat: Denies headache, Denies sore throat - Breasts Breasts: bilateral: as per HPI - Cardiovascular Cardiovascular: Denies chest pain, Denies shortness of breath - Respiratory Respiratory: Denies cough - Gastrointestinal Gastrointestinal: Denies abdominal pain, Denies diarrhea, Denies nausea, Denies vomiting - Genitourinary (Female) Genitourinary: Denies dysuria, Denies hematuria - Menstruation Menstruation: Reports period normal - Musculoskeletal Musculoskeletal: Denies myalgias - Integumentary Integumentary: Denies pruritus, Denies rash - Neurological Neurological: Denies numbness, Denies weakness - Psychiatric Psychiatric: Reports anxiety, Reports depression - Endocrine Endocrine: Denies fatigue, Denies weight change - Hematologic/Lymphatic Comment: none - Allergic/Immunologic Allergic/Immunologic: Reports seasonal allergies Past Medical History Past Medical History: No Reported History Additional Past Medical History / Comment(s): ovarian cysts History of Any Multi-Drug Resistant Organisms: None Reported Past Surgical History: No Surgical Hx Reported Past Psychological History: Anxiety, Depression Smoking Status: Never smoker Past Alcohol Use History: None Reported Past Drug Use History: Marijuana Medications and Allergies Home Medications Medication Instructions Recorded Confirmed Type Amoxicillin/Potassium Clav 1 tab PO BID 3 Days #6 tab 11/10/20 Rx [Augmentin 875-125 Tablet] Desvenlafaxine Succinate [Pristiq] 50 mg PO DAILY 11/10/20 11/10/20 History Famotidine [Pepcid] 20 mg PO BID #28 tablet 10/17/21 Rx Ondansetron Odt [Zofran Odt] 4 mg PO Q8HR PRN #10 tab 10/17/21 Rx Allergies Allergy/AdvReac Type Severity Reaction Status Date / Time No Known Allergies Allergy Verified 10/17/21 09:45 Objective - Vital Signs Vital signs: Vital Signs Temp 98.1 F 03/23/23 09:04 Pulse 71 03/23/23 09:04 Resp 16 03/23/23 09:04 BP 113/74 03/23/23 09:04 Pulse Ox 99 03/23/23 09:04 FiO2 Intake & Output 03/22/23 03/23/23 03/23/23 18:59 06:59 18:59 Weight 58.967 kg - Constitutional General appearance: Present: cooperative - EENT Eyes: Present: EOMI ENT: Present: hearing grossly normal - Neck Neck: Present: normal ROM - Respiratory Respiratory: bilateral: CTA - Cardiovascular Rhythm: regular Heart sounds: normal: S1, S2 - Integumentary Integumentary: Present: normal turgor - Musculoskeletal Musculoskeletal: Present: gait normal - Psychiatric Psychiatric: Present: A&O x's 3, appropriate affect, intact judgment & insight - Additional findings Additional findings: Breat Exam: BRA: 34B inspection: Bilateral nipple piercing, bilateral grade 1 ptosis Palpation: Right breast: Multi-positional exam fibrocystic changes, in the o'clock position laterally there is approximately a 2 cm mass palpable Right axilla: Shoddy adenopathy Left breast: Multiple positional exam dense breasts no dominant masses or nodules of concern Left axilla: Shoddy adenopathy Assessment and Plan Assessment: Impression: symptomatic fibroadenoma Plan: Needle localization excisional lumpectomy enlarging fibroadenoma right breast, possible onco-plastic tissue transfer Risks and benefits of the procedure discussed with the patient. She understands and wishes to proceed. Risks include but are not limited to bleeding, infection , reaction to the anesthetic. Additionally there is possibility that the fibroadenoma could recur. She understands and wishes to proceed. Cc: Dr. Morrison
== END ==
LOC: WWCWWP 08:41
PROVIDERS: ATTEND Surgery
DX: D24.1 Benign neoplasm of right breast (principal); F41.9 Anxiety disorder, unspecified; Z80.3 Family history of malignant neoplasm of breast

== ENCOUNTER → 2023-05-11 | Outpatient (CLI) | payer OTHER ==
[2023-05-11 09:29] VITALS: BP 114/83; PULSE 73; RESP 17; TEMP 97.8
--- NOTE | 2023-05-11 09:30 | P.PN ---
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 Morrison regarding a palpable and radiographic abnormality in the right breast. This was in September 2022. She underwent a bilateral diagnostic mammogram on which was followed by an ultrasound of both breasts. On the ultrasound 1.1 x 1.2 cm lesion was identified in the right breast which was well circumscribed at the 8 o'clock position 4 cm from the nipple. An ultrasound core biopsy was performed of this and this was consistent with a fibroadenoma. At that time she did not wish any intervention to be performed. However since then the lesion has increased in size and is symptomatic for the patient. She wishes it to be removed. She did undergo genetic testing on which was negative. Caffeine: occasional nictoine: none chocolate: occasional BCP: 19-21; not using them now Family History: mother: breast cancer at 44 no genetic testing maternal aunt: breast cancer 59 paternal grandmother: breast cancer in her 40's maternal grandmother: colon cancer Hormonal History: menarche: 13 G0 periods regular; LMP: 4 weeks ago Surgical History: none Medical History: anxiety Social History: Eating: Negative Alcohol: Negative Drugs: Has experimented with hallucinogens in the past, uses them occasional - Constitutional Constitutional: Denies chills, Denies fever - EENT Eyes: denies blurred vision, denies pain Ears: deny: decreased hearing, tinnitus Ears, nose, mouth and throat: Denies headache, Denies sore throat - Breasts Breasts: bilateral: as per HPI - Cardiovascular Cardiovascular: Denies chest pain, Denies shortness of breath - Respiratory Respiratory: Denies cough - Gastrointestinal Gastrointestinal: Denies abdominal pain, Denies diarrhea, Denies nausea, Denies vomiting - Genitourinary (Female) Genitourinary: Denies dysuria, Denies hematuria - Menstruation Menstruation: Reports period normal - Musculoskeletal Musculoskeletal: Denies myalgias - Integumentary Integumentary: Denies pruritus, Denies rash - Neurological Neurological: Denies numbness, Denies weakness - Psychiatric Psychiatric: Reports anxiety, Reports depression - Endocrine Endocrine: Denies fatigue, Denies weight change - Hematologic/Lymphatic Comment: none - Allergic/Immunologic Allergic/Immunologic: Reports seasonal allergies Past Medical History Past Medical History: No Reported History Additional Past Medical History / Comment(s): ovarian cysts History of Any Multi-Drug Resistant Organisms: None Reported Past Surgical History: No Surgical Hx Reported Past Psychological History: Anxiety, Depression Smoking Status: Never smoker Past Alcohol Use History: None Reported Past Drug Use History: Marijuana Medications and Allergies Home Medications Medication Instructions Recorded Confirmed Type Amoxicillin/Potassium Clav 1 tab PO BID 3 Days #6 tab 11/10/20 Rx [Augmentin 875-125 Tablet] Desvenlafaxine Succinate [Pristiq] 50 mg PO DAILY 11/10/20 11/10/20 History Famotidine [Pepcid] 20 mg PO BID #28 tablet 10/17/21 Rx Ondansetron Odt [Zofran Odt] 4 mg PO Q8HR PRN #10 tab 10/17/21 Rx Allergies Allergy/AdvReac Type Severity Reaction Status Date / Time No Known Allergies Allergy Verified 10/17/21 09:45 Objective - Vital Signs Vital signs: Vital Signs Temp 97.8 F 05/11/23 09:11 Pulse 73 05/11/23 09:11 Resp 17 05/11/23 09:11 BP 114/83 05/11/23 09:11 Pulse Ox 99 05/11/23 09:11 FiO2 Intake & Output 05/10/23 05/11/23 05/11/23 18:59 06:59 18:59 Weight 59.874 kg - Constitutional General appearance: Present: cooperative - EENT Eyes: Present: EOMI ENT: Present: hearing grossly normal - Neck Neck: Present: normal ROM - Respiratory Respiratory: bilateral: CTA - Cardiovascular Heart sounds: normal: S1, S2 - Integumentary Integumentary: Present: normal turgor - Musculoskeletal Musculoskeletal: Present: gait normal - Psychiatric Psychiatric: Present: A&O x's 3, appropriate affect, intact judgment & insight - Additional findings Additional findings: Breast Exam: BRA: 34B inspection: Bilateral nipple piercing, bilateral grade 1 ptosis Palpation: Right breast: Multi-positional exam fibrocystic changes, in the 8 o'clock posi tion laterally there is approximately a 2 cm mass palpable Right axilla: Shoddy adenopathy Left breast: Multi-positional exam dense breasts no dominant masses or nodules of concern Left axilla: Shoddy adenopathy Assessment and Plan Assessment: Impression: symptomatic fibroadenoma Plan: Needle localization excisional lumpectomy enlarging fibroadenoma right breast, possible onco-plastic tissue transfer Risks and benefits of the procedure discussed with the patient. She understands and wishes to proceed. Risks include but are not limited to bleeding, infection, reaction to the anesthetic. Additionally there is possibility that the fibroadenoma could recur. She understands and wishes to proceed. Cc: Dr. Morrison
== END ==
LOC: WWCWWP 08:43
PROVIDERS: ATTEND Surgery
DX: D24.1 Benign neoplasm of right breast (principal); F41.9 Anxiety disorder, unspecified; Z80.3 Family history of malignant neoplasm of breast

== ENCOUNTER 2023-05-29 09:28 | Day surgery (SDC) | payer OTHER ==
[2023-05-24 10:26] VITALS: BMI 22.3
[~2023-05-29 09:28] MED LIST: DEXAMETHASONE SOD PHOSPHATE 4 MG/ML 1 ML VIAL IV ONE; HEPARIN SODIUM,PORCINE/PF 5,000 UNIT/0.5 ML SYRINGE SQ PRN; LACTATED RINGERS 1,000 ML IV SCH; ONDANSETRON 4 MG/2 ML VIAL IVP ONE
[2023-05-29 10:21] VITALS: RESP 16
[2023-05-29] MEDS ORDERED: LIDOCAINE 1% INJ 10MG/ML (20 ML MDV) SQ ONE (11:17)
[2023-05-29] MEDS ORDERED: fentaNYL (PF) 50 MCG/ML 2 ML AMP ONE (12:15)
[2023-05-29] MEDS ORDERED: GLYCOPYRROLATE 0.2 MG/ML 2 ML VIAL ONE (12:15)
[2023-05-29] MEDS ORDERED: MIDAZOLAM 2 MG/2 ML VIAL ONE (12:15)
[2023-05-29] MEDS ORDERED: SUCCINYLCHOLINE CHLORIDE 200 MG/10 ML VIAL IV ONE (12:15)
[2023-05-29] MEDS ORDERED: PHENYLEPHRINE-0.9% NACL SYG 1,000 MCG/10 ML SYRINGE ONE (12:15)
[2023-05-29] MEDS ORDERED: PROPOFOL 10 MG/ML 20 ML VIAL IV ONE (12:15)
[2023-05-29] MEDS ORDERED: LIDOCAINE 1% INJ 10MG/ML (20 ML MDV) ONE (12:15)
--- NOTE | 2023-05-29 13:17 | P.OP ---
Date of Procedure: 05/29/23 Preoperative Diagnosis: Symptomatic fibroadenoma right breast Postoperative Diagnosis: Same Procedure(s) Performed: Right breast needle localization lumpectomy of fibroadenoma Anesthesia: DIAZ Surgeon: Gabby Au Estimated Blood Loss (ml): 5 IV fluids (ml): 400 Pathology: other (Breast tissue with fibroadenoma) Condition: stable Disposition: same day Indications for Procedure: Symptomatic fibroadenoma increasing in size Operative Findings: Dense breast tissue with fibroadenoma Description of Procedure: Concern in the right breast was localized by radiology. The patient was then brought to the operative suite. Following induction of anesthesia the right breast was prepped in a sterile fashion. An incision was made over the area of the shaft of the needle and the palpable abnormality. This was followed down to the area of concern. Wide excision was performed. The lesion was excised. The lesion was noted to be approximately 3 cm in size. It was painted for orientation. It was sent to radiology and there was confirmation that the lesion of concern was removed. The cavity was irrigated. Hemostasis was attained using electrocautery device. Titanium clips were placed. After assured that hemostasis was attained the deep tissues were closed using 3-0 Vicryl suture. This was followed by closure of the subcutaneous tissue with 3-0 Vicryl suture. A 4-0 subcuticular Monocryl suture was placed. The patient tolerated the procedure in stable condition. All instrument and sponge counts were correct at the end of the case.
[2023-05-29 13:47] VITALS: TEMP 97
[2023-05-29] MEDS ORDERED: HYDROcodone/APAP 5-325MG 1 EACH TAB PO ONE (14:11)
[2023-05-29] MEDS ORDERED: HYDROcodone/APAP 5-325MG 1 EACH TAB ONE (14:11)
[2023-05-29 14:45] VITALS: BP 96/58; PULSE 68
--- NOTE | 2023-06-06 10:07 | MM ---
Reason for Exam: Post Procedure Mammogram. Last screening mammogram was performed 11 month(s) ago. Patient History: Menarche at age 13. Premenopausal. 08/29/2022, Benign US biopsy breast VAD RT on the right side. Maternal aunt had breast cancer, age 59. Paternal grandmother had breast cancer. Mother had breast cancer, age 41. Prior Study Comparison: 06/12/2022 Bilateral MG 3D diag mammo w/cad [facility], [facility]. Tissue Density: Right: The breast tissue is extremely dense which could obscure a lesion on mammography. Pathology Description: Location: 8 o'clock. Needle Type: 9 cm Kopan The procedure was explained to the patient and all questions were answered. The potential risks including but not limited to bleeding, infection, and potential need for additional work up were discussed. Informed, written consent was obtained. The correct site was marked. A time out was performed. A ultrasound guided wire localization was performed for the fibroadenoma located in the right breast at 8:00 4 cm from the nipple. This was described on the previous report. The skin was prepped in the usual manner. Local anesthetic was administered to the access site using approximately 5 mL of lidocaine. The abnormality was approached from the lateral aspect. A Kopans needle was placed adjacent to the abnormality under mammographic guidance and confirmatory mammography images were obtained to document correct needle placement. Once the needle was documented to be in the correct location, the wire was deployed. The needle was removed. Post-procedure mammographic images were obtained to document positioning. The wire was secured to the patient's skin with a dressing. The patient tolerated the procedure well and left the department in good. Post procedure mammogram confirms location of needle localization. Specimen was obtained and contained both the lesion, clip and the wire. IMPRESSION:. Pathology Results: Result: Benign, Fibroadenoma. RIGHT BREAST, NEEDLE LOCALIZATION EXCISION: Fibroadenoma, completely excised. Previous biopsy site and background fibrocystic changes. Overall Assessment: Benign Assessment: MG diagnostic mammo RT wo CAD - Right: Benign, BI-RAD 2. Management: Screening Mammogram of both breasts at age 36. Clinical Management of the right breast. Electronically signed and approved by: Evan Walters DO
== END 2023-05-29 14:48 | disposition home or self-care (01) ==
LOC: OR 09:28
PROVIDERS: ATTEND Surgery
DX: D24.1 Benign neoplasm of right breast (principal); Z80.3 Family history of malignant neoplasm of breast
CPT/HCPCS: 81025; 88307; 77065; 76098; 19285; 19301; C1819; J2250; J0330; J1100; J0690; J2405; J2001; J3010; J2704; J1644; J2371

== ENCOUNTER → 2023-06-07 | Outpatient (CLI) | payer OTHER ==
--- NOTE | 2023-06-07 09:24 | P.PN ---
Progress Note - Text Progress Note Date: 06/07/23 Yaquelin is a 28 year old female status post resection of right breast fibroadenoma. This was completely excised. This was 1.8 by 1.2 cm. Exam: incision: Clean and dry Lungs: Clear Heart: Regular rate and rhythm Impression: Patient doing well postoperative resection of right breast fibroadenoma Plan: Follow up in 6 months with a right breast ultrasound CC: Dr. Mariano
[2023-06-07 10:00] VITALS: BP 98/53; PULSE 62; RESP 17; TEMP 98.2
== END ==
LOC: WWCWWP 09:05
PROVIDERS: ATTEND Surgery
DX: Z90.11 Acquired absence of right breast and nipple (principal); Z85.3 Personal history of malignant neoplasm of breast

== ENCOUNTER → 2024-01-04 | Outpatient (CLI) | payer OTHER ==
--- NOTE | 2024-01-04 08:54 | USB ---
Reason for Exam: Follow-up at short interval from prior study. Patient History: Menarche at age 13. Premenopausal. 05/29/2023, Benign US breast localization RT on the right side. 08/29/2022, Benign US biopsy breast VAD RT on the right side. Maternal aunt had breast cancer, age 59. Paternal grandmother had breast cancer. Mother had breast cancer, age 41. Technique: Method: Targeted. Prior Study Comparison: 06/12/2022 Bilateral MG 3D diag mammo w/cad [facility], [facility]. 05/29/2023 Right MG diagnostic mammo RT wo CAD, [facility]. Findings: The lower outer quadrant of the right breast, the axilla of the right breast and the retroareolar of the right breast were scanned. Targeted ultrasound lower outer quadrant right breast 6:00 to 9:00 including scanning of the subareolar region and axilla. Interval excision of the patient's previous lobulated mass which came back fibroadenoma. Dense tissues are present throughout. No other solid or cystic lesion or axillary lymphadenopathy. Overall Assessment: Negative, BI-RAD 1 Management: Screening Mammogram of both breasts at age 41. Unless there is a clinical indication to start sooner. A clinical breast exam by your physician is recommended on an annual basis and results should be correlated with mammographic findings. This exam should not preclude additional follow-up of suspicious palpable abnormalities. Results were given to the patient verbally at the time of exam. Electronically signed and approved by: Anson Mcconnell M.D. Radiologist
== END | disposition home or self-care (01) ==
LOC: RADUSWWP 08:17
PROVIDERS: ATTEND Surgery
DX: D24.1 Benign neoplasm of right breast (principal); R92.8 Other abnormal and inconclusive findings on diagnostic imaging of breast; Z80.3 Family history of malignant neoplasm of breast